=== PATIENT | male | born 1995 | race Caucasian/White ===

== ENCOUNTER 2017-11-02 10:59 | Emergency (ER) | payer SELFPAY ==
[~2017-11-02] VITALS: Ht 170.2 cm; Wt 65.0 kg
[2017-11-02 11:12] VITALS: BP 131/64; PULSE 95; RESP 16; TEMP 97.4; O2SAT 98
[2017-11-02] MEDS ORDERED: ENOX30P SQ (11:35)
--- NOTE | 2017-11-02 11:40 | PD ---
HPI Chief Complaint: Skin Problem Time Seen by Provider: 11:19 Travel History International Travel<30 days: No Contact w/Intl Traveler<30days: No Traveled to known affect area: No History of Present Illness HPI 22-year-old male presents to the emergency department for evaluation of right leg pain. Patient states that 2 weeks ago, he jumped off his roof, causing fracture to the right tibia/fibula. He underwent surgery by an orthopedic surgeon in [place], [place]. However, he states that he was unhappy with the care. He states he was going to move down here anyway so he came now for and needs to follow-up with an orthopedic surgeon as well. Patient has external fixation device to the right lower leg with pins in the anterior lower leg as well as the bilateral heel. He states he is concerned of infection in the heel as he is noticed some erythema over the past 2 days he denies any fevers or chills. Reports no chronic medical problems and he is currently not taking any prescribed medications. He states that he does not currently have an orthopedist to follow-up with. Pain is 10/10 to the right tibia/fibula without radiation. Exacerbating factor is movement. Moderate severity. PFSH Social History Alcohol Use: No Tobacco Use: No Substance Use: No Allergies-Medications (Allergen,Severity, Reaction): Coded Allergies: No Known Allergies (Unverified , 11/02/17) Reported Meds & Prescriptions Reported Meds & Active Scripts Active Reported Lovenox Inj (Enoxaparin Sodium) 30 Mg/0.3 Ml Syr 30 Mg SQ DAILY Review of Systems Except as stated in HPI: all other systems reviewed are Neg Physical Exam Narrative GENERAL: Well-nourished, well-developed male patient, afebrile. SKIN: Focused skin assessment warm/dry. Patient has pins to the anterior lower leg as well as a pin to the bilateral heel. There is mild surrounding erythema to the heel pins. No drainage noted. HEAD: Normocephalic. EYES: No scleral icterus. No injection or drainage. NECK: Supple, trachea midline. No JVD or lymphadenopathy. CARDIOVASCULAR: Regular rate and rhythm without murmurs, gallops, or rubs. Right pedal pulse 2+ RESPIRATORY: Breath sounds equal bilaterally. No accessory muscle use. Lung sounds are clear to auscultation throughout. GASTROINTESTINAL: Abdomen soft, non-tender, nondistended. MUSCULOSKELETAL: No cyanosis, or edema. Data Data Last Documented VS Vital Signs Date Time Temp Pulse Resp B/P (MAP) Pulse Ox O2 Delivery O2 Flow Rate FiO2 11/02/17 11:12 97.4 95 16 131/64 (86) 98 Orders Orders Complete Blood Count With Diff (11/02/17 11:31) Tibia/Fibula (Ap/Lat) (11/02/17 ) Labs Laboratory Tests Test 11/02/17 11:35 White Blood Count 7.2 TH/MM3 Red Blood Count 4.46 MIL/MM3 Hemoglobin 14.2 GM/DL Hematocrit 39.8 % Mean Corpuscular Volume 89.2 FL Mean Corpuscular Hemoglobin 31.9 PG Mean Corpuscular Hemoglobin Concent 35.8 % Red Cell Distribution Width 13.6 % Platelet Count 524 TH/MM3 Mean Platelet Volume 7.9 FL Neutrophils (%) (Auto) 62.2 % Lymphocytes (%) (Auto) 23.2 % Monocytes (%) (Auto) 10.9 % Eosinophils (%) (Auto) 2.9 % Basophils (%) (Auto) 0.8 % Neutrophils # (Auto) 4.5 TH/MM3 Lymphocytes # (Auto) 1.7 TH/MM3 Monocytes # (Auto) 0.8 TH/MM3 Eosinophils # (Auto) 0.2 TH/MM3 Basophils # (Auto) 0.1 TH/MM3 CBC Comment DIFF FINAL Differential Comment MDM Medical Decision Making Medical Screen Exam Complete: Yes Emergency Medical Condition: Yes Medical Record Reviewed: Yes Interpretation(s) Last Impressions Tibia/Fibula X-Ray 11/02/17 0000 Signed Impressions: CONCLUSION: Continued anterior displacement of the proximal tibia relative to the fracture of the distal tibia. Displacement is measured at approximately 8 mm. Severe comminution of the distal tibial fracture as described above. Moderately displaced fibular fracture. Differential Diagnosis tibia/fibula fracture vs. cellulitis vs. acute pain vs. fixation device malfunction Narrative Course 22 year old male presents to the emergency department for evaluation of fixation device to right lower leg. Patient underwent surgery by an orthopedic surgeon in [place], [place] 2 weeks ago. He moved here last night and does not have follow up. He does state his records were sent to an orthopedic surgeon down here, but does no know who. He is concerned of infection to the hardware sites. There is slight erythema, no notable drainage on exam. My attending physician, Dr. Cardenas, examined patient as well. CBC, x-ray of the right tibia/ fibula is ordered and pending. CBC shows no acute abnormality. X-ray of the right tibia/fibula shows Continued anterior displacement of the proximal tibia relative to the fracture of the distal tibia. Displacement is measured at approximately 8 mm. Severe comminution of the distal tibial fracture as described above. Moderately displaced fibular fracture. I discussed the case with my attending physician, who recommends outpatient orthopedic follow up. Patient will be given the information orthopedist director of plant operations today. He will be discharged short-term prescription for antibiotics as well as pain medication. He is instructed on need to follow-up and verbalizes agreement and understanding The patient was discharged in stable condition with instructions, including return instructions and follow up instructions. I queried [email or web address] and patient has no narcotic prescriptions in the database. Diagnosis Primary Impression: Tibia/fibula fracture Qualified Codes: S82.201A - Unspecified fracture of shaft of right tibia, initial encounter for closed fracture; S82.401A - Unspecified fracture of shaft of right fibula, initial encounter for closed fracture Referrals: Gene Muller MD call for appointment Patient Instructions: External Fixation of an Ankle Fracture (GEN), General Instructions, Leg Fracture (ED) Additional Instructions: Follow up with orthopedist. Dr. Muller is our orthopedist director of plant operations today. Take antibiotic as directed until gone. Take [place] as directed as needed for pain. Caution this can make you drowsy so do not drive after taking. Return to the emergency department for any acute, worsening of symptoms. Med/Other Pt SpecificInfo: Prescription(s) given Scripts Hydrocodone-Acetaminophen ([place]) 5 Mg-325 Mg Tab 1 TAB PO Q6H Y for PAIN, #12 TAB 0 Refills Prov: Le Sepulveda 11/02/17 Cephalexin (Keflex) 500 Mg Capsule 500 MG PO Q6H for Infection for 10 Days, #40 CAP 0 Refills Prov: Le Sepulveda 11/02/17 Disposition: 01 DISCHARGE HOME Condition: Stable Le Sepulveda November 02, 2017 11:40
[2017-11-02 11:55] LABS: AUTOMATED NEUTROPHIL # 4.5 TH/MM3 (1.8-7.7); BASOPHIL # 0.1 TH/MM3 (0-0.2); BASOPHIL % 0.8 % (0.0-2.0); EOSINOPHIL # 0.2 TH/MM3 (0-0.4); EOSINOPHIL % 2.9 % (0.0-4.0); HEMATOCRIT 39.8 % (39.0-51.0); HEMOGLOBIN 14.2 GM/DL (13.0-17.0); LYMPH % 23.2 % (9.0-44.0); LYMPHOCYTE # 1.7 TH/MM3 (1.0-4.8); MEAN CELL VOLUME 89.2 FL (80.0-100.0); MEAN CORPUSCULAR HEMOGLOBIN 31.9 PG (27.0-34.0); MEAN CORPUSCULAR HGB CONC 35.8 % (32.0-36.0); MEAN PLATELET VOLUME 7.9 FL (7.0-11.0); MONO % 10.9 % (0.0-8.0); MONOCYTE # 0.8 TH/MM3 (0-0.9); NEUT % 62.2 % (16.0-70.0); PLATELET COUNT 524 TH/MM3 (150-450); RED BLOOD COUNT 4.46 MIL/MM3 (4.50-5.90); RED CELL DISTRIBUTION WIDTH 13.6 % (11.6-17.2); WHITE BLOOD COUNT 7.2 TH/MM3 (4.0-11.0)
--- NOTE | 2017-11-02 12:09 | RADRPT ---
EXAM DATE: 11/02/2017 11:56 AM EDT AGE/SEX: 22 years / Male INDICATIONS: Pain and inflammation right ankle and lower leg 2 weeks post surgery CLINICAL DATA: This is the patient's initial encounter. Patient reports that signs and symptoms have been present for 2 weeks and indicates a pain score of 10/10. MEDICAL/SURGICAL HISTORY: . right tib/fib fracture . external fixation right tib/fib COMPARISON: No prior [facility] exams available for comparison. FINDINGS: 2 views the tibia and fibula are provided. There is an external fixator in place. There is a severely comminuted fracture involving the distal tibia. There are multiple bone fragments . The lateral exam demonstrates significant anterior displacement of the fracture fragments relative to the more proximal tibia. There is extension of the fracture through the articular surface of the t ibia with fractures of the medial malleolus and small impaction fracture of the tibial plateau. There is moderately displaced fracture involving the distal fibula as well. CONCLUSION: Continued anterior displacement of the proximal tibia relative to the fracture of the distal tibia. D isplacement is measured at approximately 8 mm. Severe comminution of the distal tibial fracture as described above. Moderately displaced fibular fracture. Electronically signed by: Lon Gaffney MD 11/02/2017 12:07 PM EDT
[2017-11-02] MEDS ORDERED: NORC5TAB PO (12:52)
[2017-11-02] MEDS ORDERED: CEPH-460 PO (12:52)
[2017-11-02] MEDS ORDERED: ACETAMINOPHEN/HYDROcodone 325 MG/5 MG TAB PO ONE (13:15)
== END 2017-11-02 13:25 | disposition home or self-care (01) ==
LOC: NEPC 10:59
DX: S82.201A Unspecified fracture of shaft of right tibia, initial encounter for closed fracture (principal); S82.401A Unspecified fracture of shaft of right fibula, initial encounter for closed fracture; W13.2XXA Fall from, out of or through roof, initial encounter; Y93.39 Activity, other involving climbing, rappelling and jumping off
CPT/HCPCS: 73590; 85025; 99284